=== PATIENT | male | born 1975 | race Caucasian/White ===

== ENCOUNTER → 2025-01-18 | Day surgery (SDC) | payer OTHER ==
--- NOTE | 2025-01-17 07:51 | P.HPIHPCON ---
History of Present Illness H&P Date: 01/17/25 Chief Complaint: Right ureteral stone This is a 49-year-old male with history of right sided ureteral stone, attempt to do ureteroscopy on January 02 was unsuccessful secondary to ureteral narrowing thus a stent was placed. Presents today for right-sided ureteroscopy with holmium laser. Aware of the risk which includes but not limited to bleeding, infection, injury to the ureter. Discussed with him we will remove the left-sided stent at the same setting. He understood all the risk and agreed to proceed Consent for Procedure: I have explained the operation/procedure to the patient, including the risks, benefits, side effects, alternative therapies (including not receiving the proposed treatment or service), the likelihood of the patient achieving his/her goals, and potential recuperation problems for the procedure/sedation/analgesia, as well as any blood products, if indicated. I also explained to the patient the risks, benefits and side effects of the alternatives, as well as the risks related to not receiving the proposed procedure, care, treatment, or services. Past Medical History Past Medical History: Prostate Disorder Additional Past Medical History / Comment(s): enlarged kidney stones History of Any Multi-Drug Resistant Organisms: None Reported Past Surgical History: No Surgical Hx Reported Additional Past Surgical History / Comment(s): ureteral stent placement Past Anesthesia/Blood Transfusion Reactions: No Reported Reaction Smoking Status: Never smoker - Past Family History Father Family Medical History: Cancer Additional Family Medical History / Comment(s): prostate Mother Family Medical History: No Reported History Medications and Allergies Home Medications Medication Instructions Recorded Confirmed Type Tamsulosin HCl [Flomax] 0.4 mg PO DAILY 01/01/25 01/15/25 History oxyCODONE-APAP 5-325MG [Percocet 1 tab PO Q8HR PRN 01/01/25 01/15/25 History 5-325 mg] Ketorolac [Toradol] 10 mg PO Q6HR PRN #15 tab 01/02/25 01/15/25 Rx Allergies Allergy/AdvReac Type Severity Reaction Status Date / Time No Known Allergies Allergy Verified 01/15/25 15:40 Surgical - Exam - General no distress, moderate pain - Eyes normal ocular movement, no pale - ENT normal nares, normal mucosa - Respiratory normal expansion, normal respiratory effort - Abdomen Abdomen: soft, non tender Assessment and Plan Assessment: OR for right-sided ureteroscopy with holmium laser, bilateral stent removal
[~2025-01-18] MED LIST: HYDROmorphone 0.5 MG/0.5 ML SYRINGE IVP PRN; LIDOCAINE 1% INJ 10MG/ML (20 ML MDV) ONE; LIDOCAINE 4% LTA KIT (4 ML) TOPICAL ONE; MIDAZOLAM 2 MG/2 ML VIAL IV PRN; MIDAZOLAM 2 MG/2 ML VIAL ONE; PROPOFOL 10 MG/ML 20 ML VIAL IV ONE; SCOPOLAMINE 1 MG/72 HR PATCH TRANSDERM ONE; SUCCINYLCHOLINE CHLORIDE 200 MG/10 ML VIAL IV ONE; fentaNYL (PF) 50 MCG/ML 2 ML AMP ONE
[2025-01-18] MEDS: IV FLUID CONTINUATION 1,000 ML IV ONE (06:53)
[2025-01-18] MEDS: LACTATED RINGERS 1,000 ML IV SCH (06:57)
[2025-01-18] MEDS: ONDANSETRON 4 MG/2 ML VIAL IVP ONE (06:58)
[2025-01-18] MEDS: DEXAMETHASONE SOD PHOSPHATE 4 MG/ML 1 ML VIAL IV ONE (06:58)
[2025-01-18 07:06] VITALS: TEMP 97.4
--- NOTE | 2025-01-18 07:12 | XR ---
EXAMINATION TYPE: XR KUB DATE OF EXAM: 01/18/2025 6:15 AM COMPARISON: None. CLINICAL INDICATION: Male, 49 years old with history of kidney stones, TECHNIQUE: XR KUB view(s) obtained. FINDINGS: There is a nonspecific bowel gas pattern. Psoas margins are normal. No organomegaly is present. Bilateral ureteral stents are present. 0.7 cm calcification in the inferior pole right kidney. There may be a small calcification measuring 0.4 cm at the mid left kidney. IMPRESSION: 1. Bilateral renal calcifications [facility], , 01/18/2025 7:09 AM
--- NOTE | 2025-01-18 08:40 | FL ---
Fluoroscopy INDICATION: Pain FINDINGS: Fluoroscopy time: 7.8 seconds. Total dose area product (DAP) in uGy*m?, mGy*cm? (or similar): 0.21123 Images obtained: 4. Images document ureteral stents. IMPRESSION: 1. Documentation of fluoroscopy. [facility], , 01/18/2025 8:37 AM
--- NOTE | 2025-01-18 08:52 | P.OP ---
Date of Procedure: 01/18/25 Preoperative Diagnosis: Right ureteral stone Postoperative Diagnosis: Same Procedure(s) Performed: Cystoscopy, right ureteroscopy, holmium lithotripsy, stone basketing and bilateral stent removal Implants: None Anesthesia: RADHA Surgeon: Mykel Patton Estimated Blood Loss (ml): 5 Pathology: other (Right ureteral stone) Condition: stable Disposition: PACU Indications for Procedure: This is a 49-year-old male with history of right sided ureteral stone, attempt to do ureteroscopy on January 02 was unsuccessful secondary to ureteral narrowing thus a stent was placed. Presents today for right-sided ureteroscopy with holmium laser. Aware of the risk which includes but not limited to bleeding, infection, injury to the ureter. Discussed with him we will remove the left-sided stent at the same setting. He understood all the risk and agreed to proceed Operative Findings: Stone within the right lower pole, no ureteral stone observed Description of Procedure: Patient brought to the operating room, general anesthesia was induced. He was prepped and draped in sterile fashion and placed in a dorsolithotomy position. Cystoscopy fitted with a 21 [place] sheath was inserted per urethra, cystoscopy was performed showed no abnormality within the bladder. The left stent was visualized and it was grasped and removed intact. At this point attention was carried to the right side, the stent was grasped and removed to the meatus. Next a sensor wire was advanced with the stent and into the kidney, the stent was removed with the wire in place. Next an 1113 [place] access sheath was passed over the wire and into the proximal ureter. Next a flexible ureteroscope was inserted through the access sheath, at this point renoscopy was performed which showed a a radiopaque stone in the right lower pole. Using the holmium laser the stone was dusted, any sizable fragments were removed using the stone basket. Repeat renoscopy showed no sizable stone within the kidney or injury to the kidney, on fluoroscopy there was no radiopaque density seen. Pullback ureteroscopy was performed showed no injury to the ureter or any ureteral stone. The bladder was emptied at the end of the case. Patient tolerated procedure was taken to recovery in stable condition
[2025-01-18 09:10] VITALS: RESP 16
[2025-01-18 09:29] VITALS: BP 145/90; PULSE 67
== END ==
LOC: OR 05:33
PROVIDERS: ATTEND Urology
DX: N20.1 Calculus of ureter (principal); Z87.442 Personal history of urinary calculi; Z79.899 Other long term (current) drug therapy
CPT/HCPCS: 82365; 74018; 52356; C1769; J2250; J0330; J1100; J0690; J2405; J2003; J3010; J2704

== ENCOUNTER → 2025-03-28 | Outpatient (CLI) | payer OTHER ==
--- NOTE | 2025-03-28 13:42 | CA ---
Exercise Stress Test Report Name: Chan Tomlin Exam Date: 03/28/2025 08:52 Exam Location: [place] Stress Ht (in): 68 Wt (lb): 225 BSA: 2.15 Ordering Phys: Froy Willams MD Referring Phys: Lorenzo Marley Technologist: sofie toth Age: 50 Gender: M : 1975 Procedure CPT: Indications: r53.83 Other Fatigue ICD-10 Codes: Patient History: Fatigue, palpitations and family history of heart disease. Medications: NONE,,, Meds past 24 hrs: Pretest Chest Pain: STRESS TEST Phu Protocol Exercise Duration (min:sec): 08:[address] Depressions (mm): Angina Score: Weinstein Score: Resting HR (bpm): 77 Peak HR (bpm): 156 Resting BP (mmHg): 126 / 99 Peak BP (mmHg): 210 / 89 MPHR: 168 Target HR: 143 % MPHR: 93 METS: 10.3 Total Dose: Peak Dose: Atropine: Double Product: 28481 BP Response: Stress Termination: TARGET HR REACHED/MAX EXERTION Stress Symptoms: NO SYMPTOMS Stress Summary: ECG ANALYSIS Resting ECG: Stress ECG: CONCLUSIONS Patient underwent exercise stress EKG with a Phu protocol treadmill stress test. Patient exercised into Stage 3 for a total of 8 minutes and 33 seconds reaching a total of 10.3 METS. Patient's maximum heart rate was 156 which represented 92% age- predicted maximum heart rate. Stress EKG findings: At baseline patient's EKG showed normal sinus rhythm, left axis deviation, no significant ST or T wave abnormalities. At peak exercise, EKG showed mildly abnormal response with [address] depressions in the inferior and lateral leads. Conclusions: 1. Mildly abnormal stress EKG. Consider stress testing with imaging modality or angiography if clinically indicated. 2. Fair exercise capacity. Dr. Joshua Joshi DO (Electronically Signed) Final Date: 28 Mar 2025 13:42
== END | disposition home or self-care (01) ==
LOC: RADNMMAIN 08:27
PROVIDERS: ATTEND Family Medicine
DX: R07.9 Chest pain, unspecified (principal); R53.83 Other fatigue; R94.31 Abnormal electrocardiogram [ECG] [EKG]
CPT/HCPCS: 93017